=== PATIENT | female | born 1970 | race Caucasian/White ===

== ENCOUNTER 2016-08-26 13:20 | Inpatient (IN) | payer OTHER ==
[~2016-08-26] VITALS: Ht 152.4 cm; Wt 46.9 kg
[~2016-08-26 13:20] MED LIST: /DULO30CA; CYCL10TA3 PO; DIVA125C5 PO; MAPA500T PO; MULTTAB4 PO; OMEP40CA2 PO; SM I100T; TRAZ50TA; VICO5TA PO; WELL150T PO
[2016-08-26] MEDS ORDERED: IBUP600T26 PO (13:59)
[2016-08-26] MEDS ORDERED: clonazePAM 0.5 MG TAB PO ONE (14:15)
[2016-08-26] MEDS ORDERED: NICOTINE 21MG/24HR 1 EA TRANSDERMAL TD ONE (14:15)
[2016-08-26 14:30] LABS: MEAN CORPUSCULAR HEMOGLOBIN 30.5 pg (27.0-33.0); MEAN CORPUSCULAR VOLUME 92.6 fl (80.0-96.0); WHITE BLOOD COUNT 9.1 K/mm3 (4.0-10.0)
[2016-08-26 14:50] LABS: ALBUMIN 4.2 GM/DL (3.2-5.2); ALBUMIN/GLOBULIN RATIO 1.14 (1.00-1.93); ALKALINE PHOSPHATASE 80 U/L (45-117); ALT/SGPT 18 U/L (12-78); ANION GAP 7 MEQ/L (8-16); AST/SGOT 18 U/L (15-37); BILIRUBIN,DIRECT < 0.1 MG/DL (0.0-0.2); BILIRUBIN,TOTAL 0.3 MG/DL (0.2-1.0); BLOOD UREA NITROGEN 11 MG/DL (7-18); CALCIUM LEVEL 9.8 MG/DL (8.5-10.1); CARBON DIOXIDE LEVEL 28 MEQ/L (21-32); CHLORIDE LEVEL 103 MEQ/L (98-107); CREATININE FOR GFR 0.58 MG/DL (0.55-1.02); GLOMERULAR FILTRATION RATE > 60.0 (>58); GLUCOSE, FASTING 91 MG/DL (70-105); POTASSIUM SERUM 4.3 MEQ/L (3.5-5.1); SODIUM LEVEL 138 MEQ/L (136-145); TOTAL PROTEIN 7.9 GM/DL (6.4-8.2)
[2016-08-26 15:42] LABS: METHADONE URINE NEGATIVE (NEGATIVE)
[2016-08-26] MEDS ORDERED: ACET50TAOT PO (16:29)
[2016-08-26 18:34] VITALS: BP 94/53
[2016-08-26] MEDS ORDERED: MOM 30ML SUSPENSION UDC PO PRN (19:15)
[2016-08-26] MEDS ORDERED: MAALOX 30 ML SUSP *UDC PO PRN (19:15)
[2016-08-26] MEDS: ACETAMINOPHEN TAB 650MG DOSE (2X325MG) PO PRN (21:22)
[2016-08-26] MEDS: traZODone 50 MG TAB PO PRN (21:22)
[2016-08-27 06:15] VITALS: BP 101/48
[2016-08-27] MEDS: ACETAMINOPHEN TAB 650MG DOSE (2X325MG) PO PRN ×2 (08:39→16:45)
[2016-08-27] MEDS: NICOTINE 21MG/24HR 1 EA TRANSDERMAL TD SCH (08:39)
--- NOTE | 2016-08-27 11:10 | HPEPDOC ---
Medical History and Physical Date of Admission Aug 26, 2016 at 16:03 History and Physical PCP: None ATTENDING: Dr. Gurwinder Mc HPI: 46yoF admitted to [facility] for depressive disorder, being medically examined today. Patient states she has a history of scoliosis and chronic back pain however she takes Tylenol and it is typically controlled. She does not complain of pain radiating down her lower extremities. She does not complain of lower extremity pain. No weakness in lower extremities. No numbness or tingling in lower extremities. No loss of bowel or bladder control. No neck pain. No weakness, numbness, or tingling in upper extremities Denies any fevers, chills, weakness, fatigue, DOWELL, CP, SOB, cough, palpitations, abdominal pain, N/V/D or changes in bowel or bladder habits. PMHx: Anxiety Depression Bipolar disorder Scoliosis Chronic back pain Bacot use PSHX: Complete Hysterectomy Singleton 06/14 Oral surgery to remove teeth EGD 12/12 Reindl. SOCHX: Resides in: [facility] Marital Status: Kids: 2 Employment: Disabled Tobacco use: One pack per day ETOH: Denies Illicit Drugs: Denies IV Drug Use: Denies Tattoos done unprofessionally: 1 years ago FAMHX: Mother: , lung cancer Father: , lung cancer Siblings: 2 brothers Alive, well Children: Alive, learning disability Unexpected deaths due to medical reasons: None. ROS: As noted in HPI, otherwise 11pt ROS of systems reviewed and remarkable only for LMP NA Hysterectomy. PE: GEN: 46 yo F, appears stated age. Well-nourished, well developed. No acute distress. Alert and oriented x 3. Pleasant, interactive. HEENT: Normocephalic, atraumatic. Pupils are equal, round, and reactive to light. Extraocular movements are intact. No nystagmus appreciated. Sclera are nonicteric. Conjunctiva without injection. Nose midline. Nasal turbinates without bogginess. EACs both patent BL. TMs both visualized and hendrickson with good cone of light, no bulging or erythema. No facial asymmetry. Moist mucous membranes. Edentulous. Pharynx pink and moist, no cobblestoning. Neck supple, trachea midline. No lymphadenopathy or thyromegaly appreciated. CHEST: Regular rate and rhythm, +S1, +S2 LUNGS: Clear to auscultation bilaterally. No wheezes, rales, or rhonchi. Breathing appears symmetric and easy. Patient is speaking in full sentences. No accessory muscle use. ABD: Round, soft, non-tender, non-distended. +Bowel sounds throughout. No rebound or guarding. No costovertebral angle tenderness. EXT: Pulses 2+ bilaterally dorsalis pedis and radial. No lower extremity edema appreciated. SKIN: Mora, dry, warm. Capillary refill <2sec. No rashes. NEURO: Alert and oriented x 3. Cranial nerves III-XII are intact. No focal deficits appreciated. EK05/08/16 SINUS RHYTHM NO PRIOR FOR COMPARISON. A&P: 46yoF admitted to [facility] for depressive disorder 1. Psych. Plan per Psychiatry. EKG on file. 2. Nicotine dependence. Patch available. 3. History of scoliosis/low back pain. Continue Tylenol as needed. 4. Follow up. No Primary Care Provider. Will attempt to establish PCP on discharge. 5. History of tattoo done unprofessionally. Patient states she was screened in the past for HIV/hepatitis. Patient reports this was negative. She declines rescreening at this time. 6. Sarah RN present throughout exam. Vital Signs Vital Signs Label Value Date Time Patient Temperature 97.6 degrees F 08/27/16 0615 Temperature Source Core 08/27/16 0615 Pulse 79 08/27/16 0615 Respiratory Rate 16 bpm 08/27/16 0615 Blood Pressure Assessment 101/48 (65) 08/27/16 0615 Bedside Pulse Oximetry 96 % 08/26/16 1834 Item Value Date Time Oxygen Delivery Method Room Air 08/26/16 1834 Laboratory Data Labs 24H Laboratory Tests 2 08/26/16 13:53: Acetaminophen Level < 2.0L, Aspartate Amino Transf (AST/SGOT) 18, Alanine Aminotransferase (ALT/SGPT) 18, Alkaline Phosphatase 80, Total Bilirubin 0.3, Direct Bilirubin < 0.1, Albumin 4.2, Albumin/Globulin Ratio 1.14, Anion Gap 7L, Calcium Level 9.8, Ethyl Alcohol Level < 0.003, Glomerular Filtration Rate > 60.0, Salicylates Level 4.1L, Thyroid Stimulating Hormone (TSH) 1.340, Total Protein 7.9 08/26/16 15:03: Urine Amphetamines Screen NEGATIVE, Urine Benzodiazepines Screen NEGATIVE, Urine Opiates Screen NEGATIVE, Urine Barbiturates Screen NEGATIVE, Urine Cannabinoids Screen NEGATIVE, Urine Cocaine Metabolite Screen NEGATIVE, Urine Methadone Screen NEGATIVE, Urine Phencyclidine Screen NEGATIVE CBC/BMP Laboratory Tests 08/26/16 13:53 Red Blood Count 4.70, Mean Corpuscular Volume 92.6, Mean Corpuscular Hemoglobin 30.5, Mean Corpuscular Hemoglobin Concent 33.0, Red Cell Distribution Width 12.0 Home Medications Scheduled PRN Acetaminophen (Acetaminophen) 500 Mg Tab 500 MG PO Q4H PRN PRN PAIN Ibuprofen (Ibuprofen) 600 Mg Tab 600 MG PO Q6H PRN PRN PAIN Allergies Coded Allergies: Bee Venom (Verified Allergy, Unknown, 08/26/16) Valeria German Aug 27, 2016 11:10
[2016-08-27 18:00] VITALS: BP 106/63
[2016-08-27] MEDS: traZODone 50 MG TAB PO PRN (21:27)
--- NOTE | 2016-08-27 21:52 | MHHPE ---
DATE OF ADMISSION: 08/26/2016 DATE OF SERVICE: 08/27/2016 CHIEF COMPLAINT: "I have depression and anxiety." HISTORY OF PRESENT ILLNESS: The patient is a 46-year-old woman with reported history of occasional depression and anxiety, brought to the emergency department by police following a pickup order generated by her roommate, who happens to be her son's girlfriend. Reportedly, she began to feel depressed following the arrest of her son, about a week prior to the current emergency room visit. Her roommate called police after patient expressed suicidal ideation. The patient reports that she has had episodes of depression; however, such mood changes have mostly been in context of stressors, such as since the arrest of her son whom she lives with. In addition, she reports 'occasional anxiety" with nonspecific symptoms; however, she does not receive any mental health treatment, and her symptoms usually resolve spontaneously. No reported features suggestive of bipolar or psychotic disorder. PAST PSYCHIATRIC HISTORY: The patient reports two previous psychiatric encounters, the first being at age 19 due to attempted suicide with a gun following the of her father. Details are unclear, but she says she was briefly hospitalized then at [facility]. Second mental health encounter was about 8 years prior, when she was seen at [facility] Emergency Room for attempted overdose but was not admitted as per the patient. No reported outpatient psychiatric treatment. SUBSTANCE ABUSE HISTORY: She reports previous use of illicit drugs and alcohol but has not used any in 22 years. She smokes a pack of cigarettes a day and is educated on smoking cessation. MEDICAL HISTORY: Chronic back pain and scoliosis. ALLERGIES: She is allergic to bee venom. FAMILY AND SOCIAL HISTORY: She says that she is but has been from her in past 7 years. She has two children, 15 and 22-year-old males. The former lives with his uncle; however, she lives with her 22-year-old son and his girlfriend. The patient says that she completed 12th grade IEP. Worked once with [employer] but currently is unemployed, although receives supplemental security income (SSI) for her medical conditions. REVIEW OF SYSTEMS: None pertinent. Please refer to medical PA's physical assessment report. MENTAL STATUS EXAMINATION: The patient is of small build and looks older than her stated age. She is fairly groomed and relates conversationally. Her speech is of normal volume, rate, and rhythm. Thought process is coherent and goal directed. No evidence of delusions or hallucinations, and she denies active suicidal or homicidal thoughts, plan, or intent. Her mood is depressed, but she reports slight improvement since being on the unit. Affect is appropriate. She is alert and oriented to time, place, and person. Insight is fair and judgment not impaired. Impulse control seems adequate. DIAGNOSIS: Adjustment disorder with depressed mood. PROBLEM LIST: 1. Depressed mood. 2. Potential suicide risk. 3. Ineffective coping. PLAN: 1. Admission and provision of safe therapeutic setting. 2. No pharmacological intervention currently required; however, she will be reassessed ongoing, and any emergent symptom addressed as clinically indicated. 3. Therapeutic programming, including groups and activities, to help promote coping skills and mitigate risk for self-harm. 4. Discharge planning will commence immediately. ESTIMATED LENGTH OF STAY: 3-[address] [facility]
[2016-08-28 06:21] VITALS: BP 97/56
[2016-08-28] MEDS: NICOTINE 21MG/24HR 1 EA TRANSDERMAL TD SCH (08:58)
[2016-08-28] MEDS: ACETAMINOPHEN TAB 650MG DOSE (2X325MG) PO PRN ×2 (08:58→21:00)
--- NOTE | 2016-08-28 16:18 | IPN ---
DATE: 08/28/2016 SUBJECTIVE: The patient is a 46-year-old woman who was admitted two days prior due to expressing thoughts of suicide and was noted to be depressed following her son's arrest and incarceration. On admission, she was diagnosed with adjustment disorder with depressed mood. She was not started on any medication. Today, she reports that she has been doing fine and feeling less depressed. She reports that she slept well through the night. She also says that she has been interacting with others and following instructions and does not any longer feel like harming herself. She reports her mood as "getting better." She currently has been attending her groups and activities. OBSERVATION: She is well groomed, appropriately dressed. She relates well and is calm and cooperative. Her mood has shown some improvement, and she denies suicidal thoughts, plans or intent, as well as homicidal ideation. Her vital signs are stable. ASSESSMENT: Ms. Osborn, on psychotropic medication, has steadily improved and currently does not appear to be at risk of danger to self or to others. PLAN: She will be reevaluated in the next 24 hours and if stable, will be discharged with appropriate followup.
[2016-08-28 18:00] VITALS: BP 90/48
[2016-08-28] MEDS: traZODone 50 MG TAB PO PRN (21:04)
[2016-08-29] MEDS: ACETAMINOPHEN TAB 650MG DOSE (2X325MG) PO PRN (06:18)
[2016-08-29 06:20] VITALS: BP 98/49
[2016-08-29] MEDS: NICOTINE 21MG/24HR 1 EA TRANSDERMAL TD SCH (09:00)
[2016-08-29] MEDS ORDERED: NICO21PAT TD (09:21)
--- NOTE | 2016-08-29 15:38 | MHDS ---
DATE OF ADMISSION: 08/26/2016 DATE OF DISCHARGE: 08/29/2016 HISTORY: The patient is a 46-year-old woman with reported history of occasional depression and anxiety, brought to the emergency department by police following a pharmacy picking tech order generated by her room mate, who happens to be her son's girlfriend. Reportedly, she began to feel depressed following the arrest of her son about a week prior to the current emergency room visit. Her room mate called police after patient expressed suicidal ideation. The patient reports that she has had episodes of depression; however, such mood changes have mostly been in context of stressors such as the recent arrest of her son whom she lives with. In addition , she reports occasional anxiety with nonspecific symptoms. She does not receive any mental health treatment, but her symptoms usually resolve spontaneously. No report of symptoms suggestive of bipolar or psychotic disorder. PAST PSYCHIATRIC HISTORY: Patient reports two previous psychiatric encounters, the first being at age 19, due to attempted suicide with a gun following the of her father. The details are unclear; however, she says she was briefly hospitalized then at [facility]. Second mental health encounter was about 8 years prior when she was seen at [facility] emergency room, for attempted overdose, but was not admitted. No reported outpatient psychiatric treatment. SUBSTANCE ABUSE HISTORY: She reports previous use of illicit drugs and alcohol but has not indulged in 22 years. She smokes a pack of cigarettes a day and is educated on smoking sensation. MEDICAL HISTORY: Notable for chronic back pain and scoliosis. ALLERGIES: She is allergic to bee venom. FAMILY AND SOCIAL HISTORY: She says that she is but has been from her in past 7 years. She has two children; 15 and 22-year-old males, the former lives with his uncle, however she lives with her 22-year-old son and his girlfriend. Patient says that she completed 12th grade education ( IEP). Once worked at the [employer] but is currently unemployed, although receives supplemental security income (SSI) for her medical conditions. REVIEW OF SYSTEMS: Not pertinent. HOSPITAL COURSE: On admission, patient was noted to be of small build, and looked older than stated age. She was fairly groomed and related conversationally. Her speech was of normal volume, rate and rhythm. Thought process was coherent and goal-directed. No evidence of delusions or hallucinations and she denied active suicidal or homicidal thoughts, plans or intent. Her mood was depressed but she reported slight improvement while being on the unit. She was alert and oriented to time, place and person. Insight was fair and judgment not impaired. Impulse control was noted to be adequate. Admitting diagnosis was Adjustment Disorder with Depressed Mood. In terms of treatment, she was provided with therapeutic programming including group and individual as well as activity therapies. No medication was prescribed she had no indication for such an intervention. She showed improvement over the course of her stay, posing no management difficulties. She interacted with others, and no notable mood symptoms or anxiety were subsequently observed. No psychotic features were evident throughout her stay and she denied further thoughts suicide. MENTAL STATUS EXAMINATION ON DISCHARGE: She is noted to be alert, groomed, appropriately dressed, and relates conversationally. Speech is fluent, and no thought disorder evident. She denies hallucination and does not appear to be responding to internal stimuli. Her mood is not depressed or elated and she denies suicidal or homicidal ideation. DISCHARGE DIAGNOSIS: Adjustment disorder with depressed mood. DISCHARGE MEDICATION: None. DISPOSITION: Patient is discharged home, with instruction to follow up with behavioral health services. Plan discussed and she demonstrates understanding, and is in agreement. DONITA
== END 2016-08-29 10:00 | disposition home or self-care (01) | DRG 754 ==
LOC: M ED 14:50 → M ED INP 16:03 → M PSY 18:08
PROVIDERS: ADMIT Psychiatry & Neurology Child & Adolescent Psychiatry; ATTEND Psychiatry & Neurology Psychiatry
DX: F43.21 Adjustment disorder with depressed mood (principal); F17.210 Nicotine dependence, cigarettes, uncomplicated; M54.5 Low back pain

== ENCOUNTER → 2016-09-24 | Outpatient (REF) | payer OTHER ==
[~2016-09-24] MED LIST changes: +ACET50TAOT PO; +IBUP600T26 PO; +NICO21PAT TD
[2016-09-24 18:52] LABS: BASO # 0.1 K/mm3 (0.0-0.2); BASO % 1.3 % (0.0-1.0); EOS # 0.4 K/mm3 (0.0-0.50); EOS % 4.8 % (0.0-3.0); LARGE UNSTAINED CELL # 0.1 K/mm3 (0.0-0.4); LARGE UNSTAINED CELL % 1.6 % (0.0-4.0); LYMPH % 38.9 % (24.0-44.0); MEAN CORPUSCULAR HEMOGLOBIN 30.4 pg (27.0-33.0); MEAN CORPUSCULAR HGB CONC 32.9 g/dl (32.0-36.5); MEAN CORPUSCULAR VOLUME 92.3 fl (80.0-96.0); MONO # 0.4 K/mm3 (0.0-0.8); NEUTROPHILS # 3.5 K/mm3 (1.8-7.7); NEUTROPHILS % 47.4 % (36.0-66.0); PLATELET COUNT, AUTOMATED 318 k/mm3 (150-450); RED CELL DISTRIBUTION WIDTH 12.1 % (11.5-14.5); WHITE BLOOD COUNT 7.4 K/mm3 (4.0-10.0)
[2016-09-24 20:12] LABS: ALBUMIN 4.1 GM/DL (3.2-5.2); ALBUMIN/GLOBULIN RATIO 1.14 (1.00-1.93); ALKALINE PHOSPHATASE 73 U/L (45-117); ALT/SGPT 16 U/L (12-78); ANION GAP 10 MEQ/L (8-16); AST/SGOT 16 U/L (15-37); BILIRUBIN,TOTAL 0.3 MG/DL (0.2-1.0); BLOOD UREA NITROGEN 14 MG/DL (7-18); CALCIUM LEVEL 8.8 MG/DL (8.5-10.1); CARBON DIOXIDE LEVEL 24 MEQ/L (21-32); CHLORIDE LEVEL 103 MEQ/L (98-107); CHOLESTEROL LEVEL 211 MG/DL (<200); CREATININE FOR GFR 0.59 MG/DL (0.55-1.02); FREE T4 1.05 NG/DL (0.76-1.46); GLOMERULAR FILTRATION RATE > 60.0 (>58); GLUCOSE, FASTING 89 MG/DL (70-105); POTASSIUM SERUM 4.8 MEQ/L (3.5-5.1); SODIUM LEVEL 137 MEQ/L (136-145); TOTAL PROTEIN 7.7 GM/DL (6.4-8.2); TRIGLYCERIDES LEVEL 159 MG/DL (<150)
== END ==
LOC: M LAB REF 17:36
PROVIDERS: ATTEND Nurse Practitioner Family
DX: Z13.220 Encounter for screening for lipoid disorders (principal)

== ENCOUNTER 2016-10-23 10:12 | Emergency (ER) | payer MEDICAID, OTHER ==
[~2016-10-23] VITALS: Ht 152.4 cm; Wt 45.4 kg
[2016-10-23] MEDS ORDERED: SERT-155 (10:24)
[2016-10-23] MEDS ORDERED: TRAZ100T4 (10:24)
[2016-10-23] MEDS ORDERED: FAMO40TA3 (10:24)
--- NOTE | 2016-10-23 11:48 | REP ---
Clinical: Weight loss and high risk factors . Comparison: 05/08/2016 . Technique: PA and lateral. Findings: The mediastinum and cardiac silhouette are normal. The lung mir demonstrate chronic changes suggesting COPD/emphysematous disease without acute consolidation, effusion, or pneumothorax. The skeletal structures are intact and normal. Impression: Chronic COPD/emphysematous disease. No acute cardiopulmonary process. Signed by Robinson Rajan MD 10/23/2016 11:39 A
[2016-10-23 12:06] VITALS: BP 92/58
== END 2016-10-23 12:19 | disposition home or self-care (01) ==
LOC: M ED 11:02
DX: R63.4 Abnormal weight loss (principal)

== ENCOUNTER 2017-01-22 10:12 | Outpatient (CLI) | payer OTHER ==
[~2017-01-22] VITALS: Ht 152.4 cm; Wt 47.6 kg
[~2017-01-22 10:12] MED LIST changes: +ACET50TA PO; +DIVA250T PO; +FAMO40TA3; +IBUP-1022 PO; -IBUP600T26 PO; +OMEP20CA3 PO; +SERT-138 PO; +SERT-155; +TRAZ-136
[2017-01-22] MEDS ORDERED: NS 1,000 ML IV ONE (10:30)
[2017-01-22] MEDS ORDERED: PROPOFOL 500 MG/50 ML VIAL As Ordered ONE (10:51)
--- NOTE | 2017-01-22 12:00 | ROOR ---
Patient Name: Lynnette Osborn Procedure Date: 01/22/2017 11:49 AM Date of : 1970 Age: 46 Room: [facility] Gender: Female Note Status: Finalized Procedure: Upper GI endoscopy Indications: Dysphagia, Heartburn Providers: Gurwinder SHEPARD MD Referring MD: Justyn AGUIRRE MD Requesting Provider: Medicines: Monitored Anesthesia Care Complications: No immediate complications. Procedure: Pre-Anesthesia Assessment: - The heart rate, respiratory rate, oxygen saturations, blood pressure, adequacy of pulmonary ventilation, and response to care were monitored throughout the procedure. The Endoscope was introduced through the mouth, and advanced to the second part of duodenum. The upper GI endoscopy was accomplished without difficulty. The patient tolerated the procedure well. Findings: The examined esophagus was normal. No endoscopic abnormality was evident in the esophagus to explain the patient's complaint of dysphagia. It was decided, however, to proceed with dilation of the entire esophagus. The scope was withdrawn. Dilation was performed with a Garcia dilator with no resistance at 54 Fr. The dilation site was examined following endoscope reinsertion and showed no change. The entire examined stomach was normal. The examined duodenum was normal. Impression: - Normal esophagus. No endoscopic esophageal abnormality to explain patient's dysphagia. Esophagus dilated with 54 F Garcia. - Normal stomach. - Normal examined duodenum. - No specimens collected. Recommendation: - Use Prilosec (omeprazole) 20 mg PO BID indefinitely. Gurwinder Shepard MD Gurwinder SHEPARD MD 01/22/2017 12:00:21 PM This report has been signed electronically. Number of Addenda: 0 Note Initiated On: 01/22/2017 11:49 AM Estimated Blood Loss: Estimated blood loss: none.
[2017-01-22] MEDS ORDERED: LIDOCAINE 2% INJ 100 MG/5 ML SDV (FOR ANES.) As Ordered ONE (12:02)
--- NOTE | 2017-01-22 12:17 | ROOR ---
Patient Name: Lynnette Osborn Procedure Date: 01/22/2017 11:53 AM Date of : 1970 Age: 46 Room: [facility] Gender: Female Note Status: Finalized Procedure: Colonoscopy Indications: Weight loss Providers: Gurwinder SHEPARD MD Referring MD: Justyn AGUIRRE MD Requesting Provider: Medicines: Monitored Anesthesia Care Complications: No immediate complications. Procedure: Pre-Anesthesia Assessment: - The heart rate, respiratory rate, oxygen saturations, blood pressure, adequacy of pulmonary ventilation, and response to care were monitored throughout the procedure. The Colonoscope was introduced through the anus and advanced to 5 cm into the ileum. The colonoscopy was performed without difficulty. The patient tolerated the procedure well. The quality of the bowel preparation was good. Findings: The perianal and digital rectal examinations were normal. Internal hemorrhoids were found during retroflexion. The hemorrhoids were moderate. The entire examined colon appeared normal on direct and retroflexion views. The terminal ileum appeared normal. Impression: - Internal hemorrhoids. - The entire colon is normal on direct and retroflexion views. - The examined portion of the ileum was normal. - No specimens collected. Recommendation: - Return to referring physician as previously scheduled. - Continue present medications. Gurwinder Shepard MD Gurwinder SHEPARD MD 01/22/2017 12:16:53 PM This report has been signed electronically. Number of Addenda: 0 Note Initiated On: 01/22/2017 11:53 AM Estimated Blood Loss: Estimated blood loss: none.
[2017-01-22 12:43] VITALS: BP 114/55
== END 2017-01-22 12:43 | disposition home or self-care (01) ==
LOC: M OPP 10:12
PROVIDERS: ATTEND Internal Medicine Gastroenterology
DX: R63.4 Abnormal weight loss (principal); K64.8 Other hemorrhoids; K21.9 Gastro-esophageal reflux disease without esophagitis; K58.9 Irritable bowel syndrome, unspecified; M19.90 Unspecified osteoarthritis, unspecified site; M41.9 Scoliosis, unspecified; F41.9 Anxiety disorder, unspecified; F33.9 Major depressive disorder, recurrent, unspecified; R06.83 Snoring; F17.210 Nicotine dependence, cigarettes, uncomplicated; Z79.899 Other long term (current) drug therapy; Z91.030 Bee allergy status; Z88.8 Allergy status to other drugs, medicaments and biological substances

== ENCOUNTER → 2017-06-04 | Outpatient (CLI) | payer OTHER | LOC: M RAD 08:42 | DX: R10.11 Right upper quadrant pain (principal) | CPT/HCPCS: J2805 ==

== ENCOUNTER 2017-08-28 08:55 | Emergency (ER) | payer OTHER | END 2017-08-28 10:01 | disposition home or self-care (01) | LOC: M ED 08:55 | DX: M41.9 Scoliosis, unspecified (principal); K21.9 Gastro-esophageal reflux disease without esophagitis; Z79.899 Other long term (current) drug therapy; Z91.030 Bee allergy status; F17.210 Nicotine dependence, cigarettes, uncomplicated | CPT/HCPCS: 99282 ==

== ENCOUNTER 2019-02-22 13:30 | Inpatient (IN) | payer MEDICAID, OTHER ==
[~2019-02-22] VITALS: Ht 152.4 cm; Wt 41.4 kg
[~2019-02-22 13:30] MED LIST changes: -/DULO30CA; +ACET500T15 PO; -ACET50TA PO; -ACET50TAOT PO; +AMOX500C PO; +BUPR150T3 PO; +CYCL7.5T32 PO; +CYMB1CAP5; +DIPH50CA29 PO; -DIVA250T PO; +DIVA250T67 PO; +MAPA500T2 PO; +NAPR-837 PO; -OMEP20CA3 PO; +OMEP20CA4 PO; -TRAZ-136; +TRAZ-163
[2019-02-22] MEDS ORDERED: TRAZ-189 PO (13:42)
[2019-02-22] MEDS ORDERED: IBUP80TA PO (13:42)
[2019-02-22] MEDS ORDERED: OMEP-218 PO (13:42)
[2019-02-22 14:20] LABS: HEMOGLOBIN 13.9 g/dl (12.0-15.5); MEAN CORPUSCULAR HEMOGLOBIN 30.6 pg (27.0-33.0); MEAN CORPUSCULAR HGB CONC 33.9 g/dl (32.0-36.5); MEAN CORPUSCULAR VOLUME 90.3 fl (80.0-96.0); PLATELET COUNT, AUTOMATED 279 10^3/uL (150-450); RED BLOOD COUNT 4.54 10^6/uL (4.00-5.40); WHITE BLOOD COUNT 8.6 10^3/uL (4.0-10.0)
[2019-02-22 14:45] LABS: ALT/SGPT 11 U/L (12-78); BILIRUBIN,TOTAL 0.3 MG/DL (0.2-1.0); BLOOD UREA NITROGEN 13 MG/DL (7-18); CALCIUM LEVEL 9.1 MG/DL (8.5-10.1); CARBON DIOXIDE LEVEL 23 MEQ/L (21-32); CHLORIDE LEVEL 108 MEQ/L (98-107); CREATININE FOR GFR 0.64 MG/DL (0.55-1.30); GLOMERULAR FILTRATION RATE > 60.0 (>58); GLUCOSE, FASTING 112 MG/DL (70-100); POTASSIUM SERUM 3.9 MEQ/L (3.5-5.1); SODIUM LEVEL 138 MEQ/L (136-145)
[2019-02-22 14:46] LABS: ACETAMINOPHEN LEVEL < 2.0 UG/ML (10.0-30.0); BILIRUBIN,DIRECT 0.1 MG/DL (0.0-0.2); ETHYL ALCOHOL (ETHANOL) < 0.003 % (0.000-0.010); SALICYLATE LEVEL 5.6 MG/DL (5.0-30.0); THYROID STIMULATING HORMONE 0.865 uIU/ML (0.358-3.740); TOTAL PROTEIN 7.2 GM/DL (6.4-8.2)
[2019-02-22 15:17] LABS: AMPHETAMINES LEVEL URINE NEGATIVE (NEGATIVE); BARBITURATES URINE NEGATIVE (NEGATIVE); BENZODIAZEPINES URINE NEGATIVE (NEGATIVE); CANNABINOIDS URINE NEGATIVE (NEGATIVE); COCAINE METABOLITE URINE NEGATIVE (NEGATIVE); METHADONE URINE NEGATIVE (NEGATIVE); OPIATES URINE NEGATIVE (NEGATIVE); PHENCYCLIDINE URINE NEGATIVE (NEGATIVE)
[2019-02-22] MEDS ORDERED: MOM 30ML SUSPENSION UDC PO PRN (18:30)
[2019-02-22] MEDS ORDERED: MAALOX 30 ML SUSP *UDC PO PRN (18:30)
[2019-02-22] MEDS ORDERED: OLANZapine ORAL DISINTEGRATING TAB 5MG PO PRN (18:30)
[2019-02-22] MEDS ORDERED: NICOTINE 21MG/24HR 1 EA TRANSDERMAL TD ONE (20:15)
[2019-02-22 21:00] VITALS: BP 119/59
[2019-02-22] MEDS: IBUPROFEN 400 MG TAB PO PRN (21:24)
[2019-02-22] MEDS: traZODone 50 MG TAB PO PRN (21:24)
[2019-02-23 06:00] VITALS: BP 111/55
[2019-02-23] MEDS: OMEPRAZOLE 20 MG CAP PO SCH (09:00)
[2019-02-23] MEDS: IBUPROFEN 400 MG TAB PO PRN ×2 (09:11→21:01)
--- NOTE | 2019-02-23 10:01 | MHHPEPDOC ---
[facility] History & Physical History and Physical Date of Service: 02/23/2019 Chief Complaint "I just want help." History of Present Illness The patient, a 48-year-old woman, with a history of depression, presents to [facility] complaining of consistent depression, low mood, difficulty sleeping, excessive guilt, loss of interest and other symptoms that she has found concerning. She states that she has no suicidal ideation, but that she does ultimately want help. She describes that her depression has been getting worse. She previously was on sertraline, but has not been able to follow up with outpatient to continue on the prescription and her depression has gone worse in that setting. She describes that she was brought in by her family membe r as she had asked to come in due to the severity of the symptoms. Review Of Systems Depression: As above. Anxiety: The patient denies any excessive worry associated with physical symptoms. They deny any experience of discreet panic in the past. Veronika: The patient denies any episodes of euphoria/dysphoria associated with decreased need for sleep, hedonism, talkatively or impulsivity lasting longer than 5 days. Psychotic: The patient denies any experiences of auditory or visual hallucinations. They deny any episodes of paranoia or delusional thinking in the past Trauma: The patient denies any traumatic events associated with nightmares or intrusive thoughts. Borderline: The patient screens negative for borderline personality at this junction. Past Psychiatric History The patient has a reported history of depression, previously admitted in July 2016 for suicidal thoughts. Reports that she was admitted to inpatient mental health at 19 years old for a suicide attempt via firearm. Reports being previously tried on sertraline, but no other trials. Reports no current outpatient follow-up. Allergies Please see below. Family Psychiatric History The patient denies any mental health history, addictions or suicides in the family. Social History The patient currently lives in the local area. She is from her , has two children, 18 and 24 at this time. She reports they were taken away at age 8 months, raised by their aunt and uncle. Per the patient, is currently in court to settle a dispute about child support during that time. Her 24-year-old currently lives with her. She has no history of violent crime. Subsists on disability. Graduated high school with an individualized education plan. Substance Abuse History The patient reports smoking a pack a day of cigarettes, but denies excessive alcohol use, cannabis, opioids or other illicit substances. Medical History Patient has no significant past medical history. Mental Status Examination General: Well dressed with good hygiene Speech: Spontaneous and fluid Thought processes: Linear and logical MSK: Smooth and coordinated gait, no signs of tremors or involuntary orofacial movements Thought content: Future orientated Abstract reasoning, and computation: Intact Description of associations: Intact Description of abnormal or psychotic thoughts: Denies any suicidal or homicidal ideation. Denies any auditory or visual hallucinations. Does not appear to be responding to internal stimuli. Does not appear to be endorsing any bizarre or paranoid ideation. Judgment: fair Insight: fair Orientation: Alert and orientated 3 Cognition: Grossly normal Recent and remote memory: Intact Attention span and concentration: Intact Fund of knowledge: Adequate Mood: "okay" Affect: dysthymic with constricted range Diagnoses Major depressive disorder, moderate, recurrent. Tobacco use disorder, severe. Assessment and Plan Major depressive disorder: Restart sertraline 25 mg daily. Discussed risks, benefits and potential side effects of treatment. Tobacco use disorder: Nicotine replacement. Declines Chantix, reports negative results in the past. Disposition Patient will need admission likely lasting longer than two midnights in order to treat her depression and assure a safe discharge plan. Problem List 1. Depression. 2. Non-adherence. 3. Ineffective coping. Initial Treatment Plan 1. Patient was admitted on a 9.39 legal status. 2. Complete history was obtained. 3. With patients permission, family will be contacted and database will be expanded. 4. Patients medication regimen will be reviewed and changed accordingly. 5. Patient will be provided with protected environment. 6. Patient will be treated with individual, group, and milieu therapies. 7. Patient will receive supportive psych-education. 8. Discharge planning will commence immediately. 9. Outpatient follow-up treatment will be strongly recommended. 10. The initial treatment plan will focus initially on converting to voluntary as patient does not meet involuntary criteria. Estimated Length Of Stay 3 days. Time Spent 40 minutes. Vital Signs Vital Signs Date Time Temp Pulse Resp B/P (MAP) Pulse Ox O2 Delivery O2 Flow Rate FiO2 02/23/19 06:00 98.7 80 12 111/55 (73) 02/22/19 17:54 96 Room Air Laboratory Data 24H Labs Laboratory Tests 2 02/22/19 14:06: Nucleated Red Blood Cells % (auto) 0.0, Anion Gap 7L, Glomerular Filtration Rate > 60.0, Calcium Level 9.1, Aspartate Amino Transf (AST/SGOT) 12, Alanine Aminotransferase (ALT/SGPT) 11L, Alkaline Phosphatase 63, Total Bilirubin 0.3, Direct Bilirubin 0.1, Total Protein 7.2, Albumin 4.0, Albumin/Globulin Ratio 1.25, Thyroid Stimulating Hormone (TSH) 0.865, Salicylates Level 5.6, Urine Amphetamines Screen NEGATIVE, Urine Benzodiazepines Screen NEGATIVE, Urine Opiates Screen NEGATIVE, Urine Methadone Screen NEGATIVE, Acetaminophen Level < 2.0L, Urine Barbiturates Screen NEGATIVE, Urine Phencyclidine Screen NEGATIVE, Urine Cocaine Metabolite Screen NEGATIVE, Urine Cannabinoids Screen NEGATIVE, Ethyl Alcohol Level < 0.003 CBC/BMP Laboratory Tests 02/22/19 14:06 Red Blood Count 4.54, Mean Corpuscular Volume 90.3, Mean Corpuscular Hemoglobin 30.6, Mean Corpuscular Hemoglobin Concent 33.9, Red Cell Distribution Width 12.7 Medications Scheduled Nicotine (Nicotrol) 10 Mg Cartridge, 1 PUFF INH ASDIRECTED for tobacoo Sertraline HCl (Sertraline HCl) 25 Mg Tablet, 25 MG PO DAILY for mood Trazodone HCl (Trazodone HCl) 100 Mg Tablet, 150 MG PO QHS, (Reported) Scheduled PRN Ibuprofen (Ibuprofen) 800 Mg Tablet, 800 MG PO Q8H PRN for PAIN, (Reported) Omeprazole (Omeprazole) 20 Mg Capsule.dr, 20 MG PO BID PRN for HEARTBURN, (Reported) Allergies Coded Allergies: bee venom protein (honey bee) (Verified Allergy, Unknown, 02/22/19) EDDIE ALANIS DO Feb 23, 2019 10:01
[2019-02-23] MEDS ORDERED: SERTRALINE HCL 25 MG TABLET PO ONE (13:30)
--- NOTE | 2019-02-23 13:41 | HPEPDOC ---
General Date of Admission Feb 22, 2019 at 18:26 Date of Service: Feb 23, 2019 Chief Complaint The patient is a 48-year-old female Who presented to the emergency room with complaints of depression History of Present Illness Patient is a 48-year-old female with past medical history of migraine headaches, learning disability, anxiety/depression, and GERD who presented to the emergency room with complains of depression. Patient was admitted to the inpatient mental health unit under the care of psychiatry. . Hospitalist service was consulted for medical screening evaluation. Currently patient reports that she does experience some palpitations. She denies chest pain, shortness of breath or any recent illnesses. She does report a dry cough without any sputum production. Patient denies abdominal pain, nausea, vomiting or any persistent diarrhea or constipation. Patient denies any urinary discomfort. She denies any fevers or chills over the last 2 weeks. Patient reports that shes experience mild weight loss of approximately 9 pounds over 4 months. She reports that her appetite is poor. Home Medications Scheduled Trazodone HCl (Trazodone HCl) 100 Mg Tablet, 150 MG PO QHS, (Reported) Scheduled PRN Ibuprofen (Ibuprofen) 800 Mg Tablet, 800 MG PO Q8H PRN for PAIN, (Reported) Omeprazole (Omeprazole) 20 Mg Capsule.dr, 20 MG PO BID PRN for HEARTBURN, (Reported) Allergies Coded Allergies: bee venom protein (honey bee) (Verified Allergy, Unknown, 02/22/19) Past Medical History Medical History Migraine headaches, learning disability, anxiety/depression, and GERD Surgical History Hysterectomy Dilation and curettage Multiple tooth extractions Colonoscopy and EGD Family History - Mother and father both with a history of lung cancer and brain cancer Social History - Denies the use of alcohol or illicit drugs; patient is an active smoker since she was 15 years old - Denies recent travel or sick contacts - Lives with son and his - Occupation; currently on disability Review of Systems Other systems 10 point review of systems complete, all negative otherwise stated in HPI Vital Signs - Vitals: BP 111/55, HR 80, RR 12, Sat 96%RA, Temp 98.7F - General: Lying in bed, No acute distress, Speaking in full sentences, AAOx3 - HEENT: NC, AT, PERRLA - CVS: RRR, +S1S2 - Lungs: Fair air entry bilaterally, No appreciable wheezing / rales / rhonchi - Abdomen: Soft, Non-distended, Non-tender - Extremities: No lower extremity edema, No calf tenderness - Neuro: No focal motor or sensory deficit - Skin: No visible rashes Laboratory Data Labs 24H Laboratory Tests 2 02/22/19 14:06: Nucleated Red Blood Cells % (auto) 0.0, Anion Gap 7L, Glomerular Filtration Rate > 60.0, Calcium Level 9.1, Aspartate Amino Transf (AST/SGOT) 12, Alanine Aminotransferase (ALT/SGPT) 11L, Alkaline Phosphatase 63, Total Bilirubin 0.3, Direct Bilirubin 0.1, Total Protein 7.2, Albumin 4.0, Albumin/Globulin Ratio 1.25, Thyroid Stimulating Hormone (TSH) 0.865, Salicylates Level 5.6, Urine Amphetamines Screen NEGATIVE, Urine Benzodiazepines Screen NEGATIVE, Urine Opiates Screen NEGATIVE, Urine Methadone Screen NEGATIVE, Acetaminophen Level < 2.0L, Urine Barbiturates Screen NEGATIVE, Urine Phencyclidine Screen NEGATIVE, Urine Cocaine Metabolite Screen NEGATIVE, Urine Cannabinoids Screen NEGATIVE, Ethyl Alcohol Level < 0.003 CBC/BMP Laboratory Tests 02/22/19 14:06 Red Blood Count 4.54, Mean Corpuscular Volume 90.3, Mean Corpuscular Hemoglobin 30.6, Mean Corpuscular Hemoglobin Concent 33.9, Red Cell Distribution Width 12.7 Plan / VTE VTE Prophylaxis Ordered?: Yes Plan Plan Depression - This is currently being managed by psychiatry Migraine headaches - c/w Ibuprofen PRN Learning disability - Patient currently appears to be functional and reports that this learning disability, is very mild Nicotine dependence - Strongly advised smoking cessation - c/w Nicotine patch GERD - c/w Omeprazole DVT prophylaxis - c/w Early ambulation Software Asset Management Analyst was present for the duration of this history and physical examination Please reconsult as needed MONIQUE FORTE MD Feb 23, 2019 13:41
[2019-02-23] MEDS ORDERED: ONDANSETRON 4 MG ORAL DISINTEGRATING TAB (Q0162 PER 1MG) PO PRN (15:00)
[2019-02-23 15:31] VITALS: BP 101/47
[2019-02-23] MEDS: traZODone 50 MG TAB PO PRN (21:02)
[2019-02-24 06:28] VITALS: BP 96/49
--- NOTE | 2019-02-24 08:20 | MHIPNPDOC ---
[facility] Progress Note Progress Note Inpatient Progress Note Lynnette Osborn MRN: N/A Date of : N/A Date of Service: 02/24/2019 History of Present Illness The patient, a 48-year-old woman, with a history of depression, presents to [facility] complaining of consistent depression, low mood, difficulty sleeping, excessive guilt, loss of interest and other symptoms that she has found concerning. She states that she has no suicidal ideation, but that she does ultimately want help. She describes that her depression has been getting worse. She previously was on sertraline, but has not been able to follow up with outpatient to continue on the prescription and her depression has gone worse in that setting. She describes that she was brought in by her family member as she had asked to come in due to the severity of the symptoms. Interval History The patient was met with today. She reports that she's tolerating the sertraline well and that she's doing well on it with improved mood, energy, less fatigue, better motivation and less concentration and focus problems. She reports feeling very good and that the nicotine patch is helpful for her tobacco cravings. She reports she's feeling ready for discharge tomorrow. No behavioral problems overnight. Nursing staff noted her to be quite amenable. Review Of Systems General: Denies fever or weight changes Cardiovascular: Denies Chest pain or palpations GI: Denies Nausea, vomiting, or bowel changes Respiratory: Denies shortness of breath or cough Neuro: Denies dizziness, tremors Derm: Denies any rashes or pruritus : Denies any dysuria or hesitancy MSK: Denies any muscle tightness or stiffness HEENT: Denies any vision changes or headaches Heme/Lymph: denies any bruising or bleeding Endo: denies any cold/heat intolerance or water intake changes Psychotherapy None on this visit. Vital Signs Reviewed. Mental Status Examination General: Well dressed with good hygiene Speech: Spontaneous and fluid Thought processes: Linear and logical MSK: Smooth and coordinated gait, no signs of tremors or involuntary orofacial movements Thought content: Future orientated Abstract reasoning, and computation: Intact Description of associations: Intact Description of abnormal or psychotic thoughts: Denies any suicidal or homicidal ideation. Denies any auditory or visual hallucinations. Does not appear to be responding to internal stimuli. Does not appear to be endorsing any bizarre or paranoid ideation. Judgment: fair Insight: fair Orientation: Alert and orientated 3 Cognition: Grossly normal Recent and remote memory: Intact Attention span and concentration: Intact Fund of knowledge: Adequate Mood: "okay" Affect: Euthymic with a full range Diagnoses Major depressive disorder, moderate, recurrent. Tobacco use disorder, severe. Assessment and Plan Major depressive disorder: To continue sertraline 25 mg daily. Tobacco use disorder: Nicotine replacement. Declines Chantix, reports negative results in the past. Disposition Discharge tomorrow. Time Spent 20 minutes. Vital Signs Vital Signs Date Time Temp Pulse Resp B/P (MAP) Pulse Ox O2 Delivery O2 Flow Rate FiO2 02/24/19 06:28 98.0 77 18 96/49 (65) 02/22/19 17:54 96 Room Air Current Medications Current Medications Medications (Trade) Dose Ordered Sig/Isaac Route PRN Reason Start Time Stop Time Status Last Admin Dose Admin Al Hydrox/Mg Hydrox/Simethicone (Mylanta) 30 ml Q4HP PRN PO HEARTBURN/INDIGESTION 02/22/19 18:30 Home Med (Med Rec Complete!) ASDIRECTED XX 02/22/19 18:30 02/22/19 18:35 DC Ibuprofen (Advil) 800 mg TID PRN PO PAIN 02/22/19 18:30 02/23/19 21:01 Magnesium Hydroxide (Milk Of Magnesia) 30 ml DAILYPRN PRN PO CONSTIPATION 02/22/19 18:30 Olanzapine (ZyPREXA ZYDIS) 5 mg Q6HP PRN PO ANXIETY/AGITATION 02/22/19 18:30 Omeprazole (PriLOSEC) 20 mg DAILY PO 02/23/19 09:00 Ondansetron HCl (Zofran Odt) 2 mg Q6HP PRN PO NAUSEA 02/23/19 15:00 Sertraline HCl (Zoloft) 25 mg DAILY PO 02/24/19 09:00 Trazodone HCl (Desyrel) 100 mg QHSP PRN PO INSOMNIA 02/22/19 18:30 02/23/19 21:02 Allergies Coded Allergies: bee venom protein (honey bee) (Verified Allergy, Unknown, 02/22/19) EDDIE ALANIS DO Feb 24, 2019 08:20
[2019-02-24] MEDS: SERTRALINE HCL 25 MG TABLET PO SCH (08:36)
[2019-02-24] MEDS: IBUPROFEN 400 MG TAB PO PRN ×2 (08:36→20:47)
[2019-02-24] MEDS: OMEPRAZOLE 20 MG CAP PO SCH (08:36)
[2019-02-24] MEDS: NICOTINE 21MG/24HR 1 EA TRANSDERMAL TD SCH (08:59)
[2019-02-24] MEDS ORDERED: SERT25TA88 PO (09:37)
[2019-02-24] MEDS ORDERED: NICOINH INH (09:37)
[2019-02-24 18:45] VITALS: BP 91/52
[2019-02-24] MEDS: traZODone 50 MG TAB PO PRN (20:47)
[2019-02-25 06:04] VITALS: BP 97/55
[2019-02-25] MEDS: IBUPROFEN 400 MG TAB PO PRN (06:31)
[2019-02-25] MEDS: OMEPRAZOLE 20 MG CAP PO SCH (08:19)
[2019-02-25] MEDS: SERTRALINE HCL 25 MG TABLET PO SCH (08:19)
[2019-02-25] MEDS: NICOTINE 21MG/24HR 1 EA TRANSDERMAL TD SCH (09:34)
--- NOTE | 2019-02-25 16:46 | MHDSPDOC ---
[facility] Discharge Summary Discharge Summary DATE OF ADMISSION: Feb 22, 2019 at 18:26 DATE OF DISCHARGE: Feb 25, 2019 at 12:30 Date of Service: 02/25/2019 Diagnoses Major depressive disorder, moderate, recurrent, in full remission Tobacco use disorder, severe. History of Present Illness The patient, a 48-year-old woman, with a history of depression, presents to [facility] complaining of consistent depression, low mood, difficulty sleeping, excessive guilt, loss of interest and other symptoms that she has found concerning. She states that she has no suicidal ideation, but that she does ultimately want help. She describes that her depression has been getting worse. She previously was on sertraline, but has not been able to follow up with outpatient to continue on the prescription and her depression has gone worse in that setting. She describes that she was brought in by her family member as she had asked to come in due to the severity of the symptoms. Consultants Involved Hospitalist/PCP screening Treatment and Progress On The Unit The patient was admitted to the unit and was converted to a voluntary status as she was not expressing any suicidal or homicidal ideation. During her entire presentation did not meet involuntary criteria for extension of her admission. She was restarted on previously tried sertraline 25 mg daily with positive effects, improved mood and additionally started on a nicotine patch with positive effects. She did well and improved over her three-day admission. Subsequently on the day of discharge, she had requested to go, did not meet involuntary criteria. She had not been expressing any safety concerns since her presentation and had been attending to her needs, not demonstrate any signs or symptoms of major mental illness impairing her and declined further continuance of her voluntary admission and was discharged in good sherif. Discharge Assessment 48-year-old woman with depression and anxiety who made significant improvements in her mood and ability to attend her needs after restart of sertraline. Mental Status Examination General: Well dressed with good hygiene Speech: Spontaneous and fluid Thought processes: Linear and logical MSK: Smooth and coordinated gait, no signs of tremors or involuntary orofacial movements Thought content: Future orientated Abstract reasoning, and computation: Intact Description of associations: Intact Description of abnormal or psychotic thoughts: Denies any suicidal or homicidal ideation. Denies any auditory or visual hallucinations. Does not appear to be responding to internal stimuli. Does not appear to be endorsing any bizarre or paranoid ideation. Judgment: fair Insight: fair Orientation: Alert and orientated 3 Cognition: Grossly normal Recent and remote memory: Intact Attention span and concentration: Intact Fund of knowledge: Adequate Mood: "okay" Affect: Euthymic with a full range Follow Up The social work team worked during the predischarge meeting in order to evaluate for further issues of lethality address them fully before discharge. They worked on safety planning with the patient's family members in order to ensure that the patient will have a safe and effective discharge. Time Spent The amount of time spent in the coordination of care for this patient was approximately 20 minutes. Vital Signs/I&Os Vital Signs Date Time Temp Pulse Resp B/P (MAP) Pulse Ox O2 Delivery O2 Flow Rate FiO2 02/25/19 06:04 97.2 82 18 97/55 (69) 02/22/19 17:54 96 Room Air Medications Scheduled Nicotine (Nicotrol) 10 Mg Cartridge, 1 PUFF INH ASDIRECTED for tobacoo for 30 Days, #1 Sertraline HCl (Sertraline HCl) 25 Mg Tablet, 25 MG PO DAILY for mood for 7 Days, #7 Trazodone HCl (Trazodone HCl) 100 Mg Tablet, 150 MG PO QHS, (Reported) Scheduled PRN Ibuprofen (Ibuprofen) 800 Mg Tablet, 800 MG PO Q8H PRN for PAIN, (Reported) Omeprazole (Omeprazole) 20 Mg Capsule.dr, 20 MG PO BID PRN for HEARTBURN, (Reported) Allergies Coded Allergies: bee venom protein (honey bee) (Verified Allergy, Unknown, 02/22/19) EDDIE ALANIS DO Feb 25, 2019 16:46
== END 2019-02-25 12:30 | disposition home or self-care (01) | DRG 751 ==
LOC: M ED 13:30 → M ED INP 18:26 → M PSY 20:40
PROVIDERS: ADMIT Psychiatry & Neurology Psychiatry; ATTEND Psychiatry & Neurology Addiction Medicine
DX: F33.1 Major depressive disorder, recurrent, moderate (principal); F17.210 Nicotine dependence, cigarettes, uncomplicated; Z91.030 Bee allergy status; G43.909 Migraine, unspecified, not intractable, without status migrainosus; F81.9 Developmental disorder of scholastic skills, unspecified; F41.8 Other specified anxiety disorders; K21.9 Gastro-esophageal reflux disease without esophagitis; Z79.899 Other long term (current) drug therapy; Z91.14 Patient's other noncompliance with medication regimen

== ENCOUNTER → 2021-07-18 | Outpatient (REF) | payer OTHER ==
[~2021-07-18] MED LIST changes: +BUPR150T12 PO; -BUPR150T3 PO; +IBUP80TA PO; +NICOINH INH; +OMEP-173 PO; +OMEP1CAP73 PO; -OMEP20CA4 PO; -SERT-155; +SERT25TA21 PO; +SERT50TA29; -TRAZ-163; +TRAZ-189 PO; +TRAZ-257
== END ==
LOC: M LAB REF 16:13
PROVIDERS: ATTEND Nurse Practitioner Family
DX: R68.89 Other general symptoms and signs (principal)

== ENCOUNTER → 2021-07-23 | Outpatient (CLI) | payer OTHER | LOC: M RAD 14:48 | PROVIDERS: ATTEND Nurse Practitioner Family | DX: R91.8 Other nonspecific abnormal finding of lung field (principal); R06.00 Dyspnea, unspecified ==

== ENCOUNTER 2021-10-01 18:21 | Emergency (ER) | payer OTHER ==
[~2021-10-01] VITALS: Ht 152.4 cm; Wt 38.1 kg
[2021-10-01] MEDS ORDERED: MIRT1TAB (18:47)
[2021-10-01] MEDS ORDERED: SERT50TA29 (18:47)
[2021-10-01] MEDS ORDERED: methylPREDNISolone 125MG 2ML VIAL IV ONE (20:45)
[2021-10-01] MEDS ORDERED: ASPIRIN 81 MG CHEW TABLET PO ONE (20:45)
[2021-10-01 20:49] LABS: VENOUS BASE EXCESS -0.3 (-2.0-2.0); VENOUS HCO3 23.2 MEQ/L (23.0-27.0); VENOUS O2 SATURATION 92.1 % (60.0-80.0); VENOUS PARTIAL PRESSURE CO2 34.8 mmHg (38.0-50.0); VENOUS PARTIAL PRESSURE O2 53.2 mmHg (30.0-50.0); VENOUS PH 7.442 UNITS (7.330-7.430); VENOUS STANDARD HCO3 24.1 MEQ/L; VENOUS TOTAL CO2 24.3 MEQ/L (24.0-28.0)
[2021-10-01 20:54] LABS: BASO # 0.1 10^3/uL (0.0-0.2); BASO % 0.7 % (0.0-1.0); EOS # 0.1 10^3/uL (0.0-0.5); EOS % 0.7 % (0.0-3.0); HEMATOCRIT 43.7 % (36.0-47.0); HEMOGLOBIN 14.3 g/dl (12.0-15.5); LYMPH # 1.7 10^3/uL (1.5-5.0); LYMPH % 10.4 % (24.0-44.0); MEAN CORPUSCULAR HEMOGLOBIN 30.6 pg (27.0-33.0); MEAN CORPUSCULAR HGB CONC 32.7 g/dl (32.0-36.5); MEAN CORPUSCULAR VOLUME 93.4 fl (80.0-96.0); MONO % 6.1 % (2.0-8.0); NEUTROPHILS # 13.5 10^3/uL (1.5-8.5); NEUTROPHILS % 81.6 % (36.0-66.0); PLATELET COUNT, AUTOMATED 367 10^3/uL (150-450); RED BLOOD COUNT 4.68 10^6/uL (4.00-5.40); WHITE BLOOD COUNT 16.5 10^3/uL (4.0-10.0)
[2021-10-01] MEDS: IPRATROPIUM 0.5MG/ALBUTEROL 2.5MG INH SOL UD 3ML (DUONEB) NEB SCH ×3 (21:03→21:35)
[2021-10-01 21:23] LABS: CK-MB VALUE MASS < 1.0 NG/ML (<3.6); CPK CREATINE PHOSPHOKINASE 56 U/L (26-192); MB/CK RELATIVE INDEX 1.79 (< OR =4)
[2021-10-01 21:27] LABS: ALBUMIN 3.3 GM/DL (3.2-5.2); ALT/SGPT 13 U/L (12-78); BILIRUBIN,DIRECT < 0.1 MG/DL (0.0-0.2); BILIRUBIN,TOTAL 0.3 MG/DL (0.2-1.0); BLOOD UREA NITROGEN 12 MG/DL (7-18); CALCIUM LEVEL 9.8 MG/DL (8.5-10.1); CARBON DIOXIDE LEVEL 26 MEQ/L (21-32); CHLORIDE LEVEL 102 MEQ/L (98-107); GLOMERULAR FILTRATION RATE > 60.0 (>51); GLUCOSE, FASTING 98 MG/DL (70-100); NT-PRO BNP 86 PG/ML (<125); POTASSIUM SERUM 4.5 MEQ/L (3.5-5.1); SODIUM LEVEL 137 MEQ/L (136-145); TOTAL PROTEIN 7.4 GM/DL (6.4-8.2)
[2021-10-01] MEDS ORDERED: ISOVUE-370 76% 100ML VIAL As Ordered ONE (22:12)
[2021-10-01 22:39] LABS: CK-MB VALUE MASS 1.2 NG/ML (<3.6); CPK CREATINE PHOSPHOKINASE 45 U/L (26-192); MB/CK RELATIVE INDEX 2.67 (< OR =4)
[2021-10-02] MEDS ORDERED: PRED20TA PO ×2 (00:08→00:31)
[2021-10-02] MEDS ORDERED: CEFD300C41 PO ×2 (00:08→00:31)
[2021-10-02 00:31] VITALS: BP 131/61
[2021-10-02] MEDS ORDERED: CEFDINIR 300 MG CAP (OMNICEF) PO ONE (01:00)
== END 2021-10-02 00:33 | disposition home or self-care (01) ==
LOC: M ED 18:21
DX: J18.9 Pneumonia, unspecified organism (principal); R91.1 Solitary pulmonary nodule; J44.9 Chronic obstructive pulmonary disease, unspecified; Z91.030 Bee allergy status; Z79.899 Other long term (current) drug therapy; F17.210 Nicotine dependence, cigarettes, uncomplicated
CPT/HCPCS: 36415; 71045; 71275; 80048; 80076; 82550; 82553; 82803; 83605; 83880; 85025; 87040; 87486; 87581; 87633; 87798; 93005; 93041; 94640; 99285; J2930; Q9967

== ENCOUNTER 2021-10-12 17:59 | Inpatient (IN) | payer OTHER ==
[~2021-10-12] VITALS: Ht 152.4 cm; Wt 37.6 kg
[~2021-10-12 17:59] MED LIST changes: +CEFD300C41 PO; +MIRT1TAB PO; +PRED20TA PO; +SERT50TA29 PO
[2021-10-12] MEDS: COMBIVENT RESPIMAT 100-20MCG INHALER 4GM INH SCH ×3 (18:22→18:55)
[2021-10-12 18:27] LABS: BASO # 0.1 10^3/uL (0.0-0.2); BASO % 0.7 % (0.0-1.0); EOS % 0.3 % (0.0-3.0); HEMATOCRIT 46.5 % (36.0-47.0); HEMOGLOBIN 14.7 g/dl (12.0-15.5); LYMPH % 7.2 % (24.0-44.0); MEAN CORPUSCULAR HEMOGLOBIN 30.6 pg (27.0-33.0); MEAN CORPUSCULAR HGB CONC 31.6 g/dl (32.0-36.5); MEAN CORPUSCULAR VOLUME 96.9 fl (80.0-96.0); MONO # 0.9 10^3/uL (0.0-0.8); MONO % 6.5 % (2.0-8.0); NEUTROPHILS # 12.2 10^3/uL (1.5-8.5); NEUTROPHILS % 84.6 % (36.0-66.0); PLATELET COUNT, AUTOMATED 329 10^3/uL (150-450); WHITE BLOOD COUNT 14.5 10^3/uL (4.0-10.0)
[2021-10-12 19:00] LABS: ALBUMIN 3.9 GM/DL (3.2-5.2); ALT/SGPT 22 U/L (12-78); BILIRUBIN,DIRECT 0.2 MG/DL (0.0-0.2); BILIRUBIN,TOTAL 0.2 MG/DL (0.2-1.0); BLOOD UREA NITROGEN 15 MG/DL (7-18); CALCIUM LEVEL 9.6 MG/DL (8.5-10.1); CARBON DIOXIDE LEVEL 29 MEQ/L (21-32); CHLORIDE LEVEL 109 MEQ/L (98-107); CREATININE FOR GFR 0.68 MG/DL (0.55-1.30); GLOMERULAR FILTRATION RATE > 60.0 (>51); GLUCOSE, FASTING 143 MG/DL (70-100); POTASSIUM SERUM 4.2 MEQ/L (3.5-5.1); SODIUM LEVEL 142 MEQ/L (136-145); TOTAL PROTEIN 7.9 GM/DL (6.4-8.2)
[2021-10-12] MEDS ORDERED: IPRATROPIUM 0.5MG/ALBUTEROL 2.5MG INH SOL UD 3ML (DUONEB) NEB ONE ×2 (19:45)
[2021-10-12] MEDS ORDERED: CEFD300CAP PO (22:44)
[2021-10-12] MEDS ORDERED: HOME MED LIST COMPLETE! XX SCH (22:45)
[2021-10-12] MEDS ORDERED: LEVALBUTEROL 1.25 MG/0.5 ML CONCENTRATE NEB NEB PRN (23:00)
[2021-10-12] MEDS ORDERED: AZITHROMYCIN 250MG TABLET PO ONE (23:15)
[2021-10-12] MEDS ORDERED: NS 500 ML IV ONE (23:20)
[2021-10-13 00:07] LABS: FREE T4 1.11 NG/DL (0.76-1.46); THYROID STIMULATING HORMONE 0.493 uIU/ML (0.358-3.740)
[2021-10-13] MEDS: HEPARIN SOD (PORCINE) 5000UNITS/ML 1ML VIAL/SYRINGE SC SCH ×3 (00:08→19:30)
[2021-10-13] MEDS: SERTRALINE HCL 50 MG TAB PO SCH ×2 (00:08→20:20)
[2021-10-13] MEDS: NS 1,000 ML IV SCH ×2 (00:09→05:20)
[2021-10-13] MEDS: methylPREDNISolone 40MG 1ML VIAL IV SCH ×2 (00:09→09:21)
[2021-10-13] MEDS: MIRTAZAPINE 7.5MG PER 1/2 TABLET PO SCH ×2 (02:31→20:20)
[2021-10-13 05:52] LABS: ABG BASE EXCESS 0.8 (-2.0-2.0); ABG HCO3 27.5 MEQ/L (22.0-26.0); ABG O2 SATURATION 97.9 % (95.0-99.0); ABG PARTIAL PRESSURE CO2 52.3 mmHg (35.0-45.0); ABG PARTIAL PRESSURE O2 103.1 mmHg (75.0-100.0); ABG STANDARD HCO3 25.2 MEQ/L (22.0-26.0); ABG TOTAL CO2 29.1 MEQ/L (22.0-29.0); ABG pH (ARTERIAL) 7.338 UNITS (7.350-7.450)
[2021-10-13] MEDS: TIOTROPIUM INHALER/CAPSULE (SPIRIVA) INH SCH (08:00)
[2021-10-13] MEDS: IPRATROPIUM 0.02% SOLN 0.5MG 2.5ML NEB NEB SCH ×4 (08:52→19:10)
[2021-10-13] MEDS: NICOTINE 14 MG/24 HR TRANSDERMAL TD SCH (09:00)
[2021-10-13 09:06] LABS: BLOOD UREA NITROGEN 16 MG/DL (7-18); CALCIUM LEVEL 8.8 MG/DL (8.5-10.1); CARBON DIOXIDE LEVEL 26 MEQ/L (21-32); CHLORIDE LEVEL 112 MEQ/L (98-107); CREATININE FOR GFR 0.42 MG/DL (0.55-1.30); GLOMERULAR FILTRATION RATE > 60.0 (>51); GLUCOSE, FASTING 157 MG/DL (70-100); POTASSIUM SERUM 4.6 MEQ/L (3.5-5.1); SODIUM LEVEL 141 MEQ/L (136-145)
[2021-10-13] MEDS: AZITHROMYCIN 250MG TABLET PO SCH (09:21)
[2021-10-13 15:40] VITALS: BP 117/68
[2021-10-13] MEDS: methylPREDNISolone 125MG 2ML VIAL IV SCH ×2 (18:19→23:54)
[2021-10-13] MEDS: SYMBICORT 80/4.5MCG INHALER 6GM INH SCH (19:09)
[2021-10-13 20:00] VITALS: BP_SYST 115; BP_SYST 120; BP_DIAS 59; BP_DIAS 65
[2021-10-14] VITALS: BP 117/68
[2021-10-14 04:00] VITALS: BP 104/55
[2021-10-14] MEDS: TIOTROPIUM INHALER/CAPSULE (SPIRIVA) INH SCH (07:59)
[2021-10-14] MEDS: SYMBICORT 80/4.5MCG INHALER 6GM INH SCH (07:59)
[2021-10-14] MEDS: IPRATROPIUM 0.02% SOLN 0.5MG 2.5ML NEB NEB SCH ×2 (08:00→11:22)
[2021-10-14] MEDS: HEPARIN SOD (PORCINE) 5000UNITS/ML 1ML VIAL/SYRINGE SC SCH (09:00)
[2021-10-14 09:15] VITALS: BP 123/75
[2021-10-14] MEDS ORDERED: AZIT-12 PO (09:45)
[2021-10-14] MEDS ORDERED: TIOT18INH INH (09:45)
[2021-10-14] MEDS ORDERED: PRED10TA2 PO (09:45)
[2021-10-14] MEDS ORDERED: SYMB80INH INH (09:45)
[2021-10-14] MEDS: AZITHROMYCIN 250MG TABLET PO SCH (09:57)
[2021-10-14] MEDS: methylPREDNISolone 125MG 2ML VIAL IV SCH (09:58)
[2021-10-14] MEDS: NICOTINE 14 MG/24 HR TRANSDERMAL TD SCH (09:58)
[2021-10-14] MEDS ORDERED: PROAAER10 INH (11:36)
[2021-10-14 11:54] LABS: HEMATOCRIT 40.9 % (36.0-47.0); HEMOGLOBIN 13.3 g/dl (12.0-15.5); MEAN CORPUSCULAR HEMOGLOBIN 30.6 pg (27.0-33.0); MEAN CORPUSCULAR HGB CONC 32.5 g/dl (32.0-36.5); MEAN CORPUSCULAR VOLUME 94.2 fl (80.0-96.0); PLATELET COUNT, AUTOMATED 315 10^3/uL (150-450); RED BLOOD COUNT 4.34 10^6/uL (4.00-5.40); WHITE BLOOD COUNT 15.4 10^3/uL (4.0-10.0)
[2021-10-14 12:00] VITALS: BP 126/71
[2021-10-14 12:25] LABS: ATYPICAL LYMPH 8 % (0-5); LYMPHOCYTES 6 % (16-44); MONOCYTES 5 % (0-5); NEUTROPHILS 75 % (28-66); PLATELET ESTIMATE NORMAL (NORMAL)
[2021-10-14 12:26] LABS: ALT/SGPT 18 U/L (12-78); BLOOD UREA NITROGEN 22 MG/DL (7-18); CALCIUM LEVEL 9.8 MG/DL (8.5-10.1); CARBON DIOXIDE LEVEL 32 MEQ/L (21-32); CHLORIDE LEVEL 103 MEQ/L (98-107); CREATININE FOR GFR 0.44 MG/DL (0.55-1.30); GLOMERULAR FILTRATION RATE > 60.0 (>51); GLUCOSE, FASTING 140 MG/DL (70-100); POTASSIUM SERUM 4.2 MEQ/L (3.5-5.1); SODIUM LEVEL 138 MEQ/L (136-145)
[2021-10-14 12:27] LABS: ALBUMIN 3.2 GM/DL (3.2-5.2); BILIRUBIN,TOTAL 0.2 MG/DL (0.2-1.0); MAGNESIUM LEVEL 2.3 MG/DL (1.8-2.4); TOTAL PROTEIN 6.5 GM/DL (6.4-8.2)
[2021-10-14] MEDS ORDERED: BUDE180INH INH (13:10)
[2021-10-14] MEDS ORDERED: IPRAINH INH (13:11)
[2021-10-14] MEDS ORDERED: ACETAMINOPHEN 500 MG TAB PO PRN (13:50)
[2021-10-14] MEDS ORDERED: traMADol 50 MG TAB PO ONE (13:50)
== END 2021-10-14 15:17 | disposition home health service (06) | DRG 140 ==
LOC: M ED 17:59 → EDBD 17:59 → M ED INP 22:58 → ENRESERV 10-13 14:23 → M PCU 10-13 15:28
PROVIDERS: ADMIT Internal Medicine; ATTEND Internal Medicine
PROC: B246ZZZ Ultrasonography of Right and Left Heart (ICD-10-PCS; principal; 2021-10-12)
DX: J44.1 Chronic obstructive pulmonary disease with (acute) exacerbation (principal); E43 Unspecified severe protein-calorie malnutrition; J96.11 Chronic respiratory failure with hypoxia; J96.12 Chronic respiratory failure with hypercapnia; R64 Cachexia; E87.2 Acidosis; R00.0 Tachycardia, unspecified; R91.1 Solitary pulmonary nodule; F32.A Depression, unspecified; Z20.822 Contact with and (suspected) exposure to COVID-19; Z79.899 Other long term (current) drug therapy; Z91.030 Bee allergy status; F17.210 Nicotine dependence, cigarettes, uncomplicated; Z90.79 Acquired absence of other genital organ(s); K21.9 Gastro-esophageal reflux disease without esophagitis

== ENCOUNTER → 2021-11-05 | Outpatient (CLI) | payer OTHER ==
[~2021-11-05] MED LIST changes: +AZIT-12 PO; +BUDE180INH INH; +CEFD300CAP PO; +IPRAINH INH; +PRED10TA2 PO; +PROAAER10 INH; +SYMB80INH INH; +TIOT18INH INH
== END ==
LOC: M RAD 14:57
PROVIDERS: ATTEND Internal Medicine Pulmonary Disease
DX: J43.9 Emphysema, unspecified (principal); R91.8 Other nonspecific abnormal finding of lung field

== ENCOUNTER → 2021-11-05 | Outpatient (CLI) | payer OTHER | LOC: M RAD 15:04 | PROVIDERS: ATTEND Nurse Practitioner Family | DX: J44.9 Chronic obstructive pulmonary disease, unspecified (principal) ==

== ENCOUNTER 2022-05-06 18:39 | Emergency (ER) | payer OTHER ==
[~2022-05-06] VITALS: Ht 152.4 cm; Wt 41.0 kg
[~2022-05-06 18:39] MED LIST changes: -ARNU1INH3; -AZIT500T5 PO; -IBUP-1022; -OMEP-173; -STIO1AER
[2022-05-06] MEDS ORDERED: STIO1AER (18:50)
[2022-05-06] MEDS ORDERED: OMEP-173 (18:50)
[2022-05-06] MEDS ORDERED: ARNU1INH3 (18:50)
[2022-05-06] MEDS ORDERED: IBUP-1022 (18:51)
[2022-05-06] MEDS ORDERED: cefTRIAXone SOD 2 GM in D5W MINI-BAG PLUS 50 ML IV ONE (20:00)
[2022-05-06] MEDS ORDERED: methylPREDNISolone 125MG 2ML VIAL IV ONE (20:00)
[2022-05-06] MEDS ORDERED: ISOVUE-370 76% 100ML VIAL As Ordered ONE (20:21)
[2022-05-06 21:10] LABS: CPK CREATINE PHOSPHOKINASE 114 U/L (34-145); MB/CK RELATIVE INDEX 0.87 (< OR =4)
[2022-05-06 22:57] LABS: CK-MB VALUE MASS < 1.0 NG/ML (<3.6); CPK CREATINE PHOSPHOKINASE 132 U/L (34-145); MB/CK RELATIVE INDEX 0.75 (< OR =4)
[2022-05-06] MEDS ORDERED: PRED20TA PO (23:33)
[2022-05-06] MEDS ORDERED: CEFD300CAP PO (23:33)
[2022-05-06] MEDS ORDERED: AZIT500T5 PO (23:33)
[2022-05-06] MEDS ORDERED: AZITHROMYCIN 250MG TABLET PO ONE (23:50)
[2022-05-07 00:07] VITALS: BP 130/77
== END 2022-05-07 00:17 | disposition home or self-care (01) ==
LOC: M ED 18:39
DX: J18.9 Pneumonia, unspecified organism (principal); R91.8 Other nonspecific abnormal finding of lung field; F17.200 Nicotine dependence, unspecified, uncomplicated; Z79.899 Other long term (current) drug therapy; Z91.030 Bee allergy status
CPT/HCPCS: 71275; 80047; 82550; 82553; 87040; 87486; 87581; 87633; 87798; 93005; 96365; 96366; 96375; 99284; J0696; J2930

== ENCOUNTER → 2022-05-06 | Outpatient (CLI) | payer OTHER ==
[~2022-05-06] MED LIST changes: +ARNU1INH3; +AZIT500T5 PO; +IBUP-1022; +OMEP-173; +STIO1AER
[2022-05-06 12:12] LABS: BASO # 0.1 10^3/uL (0.0-0.2); BASO % 1.1 % (0.0-1.0); EOS # 0.4 10^3/uL (0.0-0.5); EOS % 3.3 % (0.0-3.0); HEMATOCRIT 41.8 % (36.0-47.0); HEMOGLOBIN 12.9 g/dl (12.0-15.5); LYMPH # 2.1 10^3/uL (1.5-5.0); MEAN CORPUSCULAR HEMOGLOBIN 28.7 pg (27.0-33.0); MEAN CORPUSCULAR HGB CONC 30.9 g/dl (32.0-36.5); MEAN CORPUSCULAR VOLUME 93.1 fl (80.0-96.0); MONO % 7.9 % (2.0-8.0); NEUTROPHILS # 8.8 10^3/uL (1.5-8.5); PLATELET COUNT, AUTOMATED 459 10^3/uL (150-450); RED BLOOD COUNT 4.49 10^6/uL (4.00-5.40); WHITE BLOOD COUNT 12.6 10^3/uL (4.0-10.0)
== END ==
LOC: M RAD 10:09
PROVIDERS: ATTEND Nurse Practitioner Family
DX: R91.8 Other nonspecific abnormal finding of lung field (principal); R05.9 Cough, unspecified

== ENCOUNTER → 2022-06-27 | Outpatient (CLI) | payer OTHER ==
[~2022-06-27] MED LIST changes: +ARNU1INH3; +AZIT500T5 PO; +IBUP-1022; +OMEP-173; +STIO1AER
== END ==
LOC: M PLAIMG 14:22
PROVIDERS: ATTEND Nurse Practitioner Family
DX: J43.9 Emphysema, unspecified (principal); J18.9 Pneumonia, unspecified organism

== ENCOUNTER → 2022-08-21 | Outpatient (CLI) | payer OTHER | LOC: M RAD 13:12 | PROVIDERS: ATTEND Nurse Practitioner Family | DX: M54.50 Low back pain, unspecified (principal) ==

== ENCOUNTER 2023-02-10 11:14 | Day surgery (SDC) | payer OTHER ==
[~2023-02-10] VITALS: Ht 152.4 cm; Wt 47.2 kg
[~2023-02-10 11:14] MED LIST changes: +ALBU8.5H PO; -IBUP-1022; +NS 1,000 ML IV ONE; -OMEP-173
[2023-02-10] MEDS ORDERED: LIDOCAINE 2% 100MG/5ML SDV (FOR ANES.) As Ordered ONE (12:11)
[2023-02-10] MEDS ORDERED: propofoL 200 MG/20 ML VIAL As Ordered ONE ×2 (12:11→12:32)
[2023-02-10 12:54] VITALS: TEMP 97.9
[2023-02-10 13:11] VITALS: BP 114/53; O2SAT 98
== END 2023-02-10 13:19 | disposition home or self-care (01) ==
LOC: M OPP 11:14
PROVIDERS: ATTEND Internal Medicine Gastroenterology
DX: D12.3 Benign neoplasm of transverse colon (principal); K57.30 Diverticulosis of large intestine without perforation or abscess without bleeding; K64.8 Other hemorrhoids; K31.89 Other diseases of stomach and duodenum; K21.9 Gastro-esophageal reflux disease without esophagitis; K58.9 Irritable bowel syndrome, unspecified; M19.90 Unspecified osteoarthritis, unspecified site; M41.9 Scoliosis, unspecified; F41.9 Anxiety disorder, unspecified; F32.A Depression, unspecified; J44.9 Chronic obstructive pulmonary disease, unspecified; F17.290 Nicotine dependence, other tobacco product, uncomplicated; Z91.030 Bee allergy status; Z79.899 Other long term (current) drug therapy; Z80.1 Family history of malignant neoplasm of trachea, bronchus and lung

== ENCOUNTER 2023-05-04 14:16 | Emergency (ER) | payer OTHER ==
[~2023-05-04] VITALS: Ht 152.4 cm; Wt 52.3 kg
[~2023-05-04 14:16] MED LIST changes: +CEFD1CAP9 PO; -CEFD300C41 PO; -NS 1,000 ML IV ONE
[2023-05-04] MEDS ORDERED: PRED20TA PO (18:23)
[2023-05-04] MEDS ORDERED: AMOX875T2 PO (18:23)
[2023-05-04] MEDS ORDERED: ZITHTAB PO (18:23)
[2023-05-04] MEDS ORDERED: predniSONE 20 MG TAB PO ONE (18:30)
[2023-05-04] MEDS ORDERED: AUGMENTIN 875 MG TAB PO ONE (18:30)
[2023-05-04 18:35] VITALS: BP 123/58; TEMP 97.5; O2SAT 94
== END 2023-05-04 18:48 | disposition home or self-care (01) ==
LOC: M ED 14:16
DX: J44.1 Chronic obstructive pulmonary disease with (acute) exacerbation (principal); Z11.52 Encounter for screening for COVID-19; F17.290 Nicotine dependence, other tobacco product, uncomplicated
CPT/HCPCS: 71046; 87486; 87581; 87633; 87798; 99283; J7512

== ENCOUNTER → 2023-05-21 | Outpatient (CLI) | payer OTHER ==
[~2023-05-21] MED LIST changes: +AMOX875T2 PO; +ZITHTAB PO
== END ==
LOC: M RAD 14:34
PROVIDERS: ATTEND Nurse Practitioner Family
DX: J98.4 Other disorders of lung (principal)

== ENCOUNTER → 2023-06-29 | Outpatient (REF) | payer OTHER ==
[2023-06-29 18:30] LABS: BASO # 0.1 10^3/uL (0.0-0.2); BASO % 1.7 % (0.0-1.0); EOS # 0.4 10^3/uL (0.0-0.5); EOS % 5.6 % (0.0-3.0); HEMATOCRIT 44.3 % (36.0-47.0); HEMOGLOBIN 14.2 g/dl (12.0-15.5); LYMPH % 26.4 % (24.0-44.0); MEAN CORPUSCULAR HEMOGLOBIN 30.1 pg (27.0-33.0); MEAN CORPUSCULAR HGB CONC 32.1 g/dl (32.0-36.5); MEAN CORPUSCULAR VOLUME 94.1 fl (80.0-96.0); MONO # 0.6 10^3/uL (0.0-0.8); MONO % 7.7 % (2.0-8.0); NEUTROPHILS # 4.4 10^3/uL (1.5-8.5); NEUTROPHILS % 58.3 % (36.0-66.0); PLATELET COUNT, AUTOMATED 288 10^3/uL (150-450); RED BLOOD COUNT 4.71 10^6/uL (4.00-5.40); WHITE BLOOD COUNT 7.5 10^3/uL (4.0-10.0)
[2023-06-29 18:56] LABS: ALBUMIN 4.1 G/DL (3.2-5.2); ALKALINE PHOSPHATASE 63 U/L (46-116); ALT/SGPT 14 U/L (7.0-40); AST/SGOT 17 U/L (<34); BILIRUBIN,TOTAL 0.3 MG/DL (0.3-1.2); BLOOD UREA NITROGEN 15 MG/DL (9-23); CALCIUM LEVEL 9.4 MG/DL (8.5-10.1); CARBON DIOXIDE LEVEL 28 MMOL/L (20-31); CHLORIDE LEVEL 107 MMOL/L (98-107); CHOLESTEROL LEVEL 256 MG/DL (<200); CHOLESTEROL RISK RATIO 3.02 (<5); GLOMERULAR FILTRATION RATE > 60.0 (>51); GLUCOSE, FASTING 73 MG/DL (60-100); HDL CHOLESTEROL 84.5 MG/DL (>40); LDL CHOLESTEROL 141.9 MG/DL (<100); NON-HDL-C 171.5 MG/DL; POTASSIUM SERUM 4.7 MMOL/L (3.5-5.1); SODIUM LEVEL 139 MMOL/L (136-145); TRIGLYCERIDES LEVEL 148 MG/DL (<150)
[2023-06-29 18:57] LABS: FREE T4 0.97 NG/DL (0.89-1.76); THYROID STIMULATING HORMONE 0.969 uIU/ML (0.55-4.78)
[2023-06-29 19:04] LABS: HEMOGLOBIN A1c 5.7 % (4.0-6.0)
== END ==
LOC: M LAB REF 17:45
PROVIDERS: ATTEND Nurse Practitioner Family
DX: Z68.22 Body mass index [BMI] 22.0-22.9, adult (principal)

== ENCOUNTER → 2023-11-06 | Outpatient (REF) | payer OTHER | LOC: M LAB REF 16:19 | PROVIDERS: ATTEND Nurse Practitioner Family | DX: R30.0 Dysuria (principal) ==

== ENCOUNTER → 2024-01-25 | Outpatient (CLI) | payer OTHER | LOC: M PLAIMG 11:39 | PROVIDERS: ATTEND Nurse Practitioner Family | DX: Z87.09 Personal history of other diseases of the respiratory system (principal); J43.9 Emphysema, unspecified ==

== ENCOUNTER → 2024-06-14 | Outpatient (CLI) | payer OTHER ==
[~2024-06-14] MED LIST changes: +BUDE180A2 INH; -BUDE180INH INH
[2024-06-14 10:59] LABS: BASO # 0.1 10^3/uL (0.0-0.2); BASO % 1.3 % (0.0-1.0); EOS # 0.3 10^3/uL (0.0-0.5); EOS % 4.9 % (0.0-3.0); HEMATOCRIT 40.7 % (36.0-47.0); HEMOGLOBIN 12.7 g/dl (12.0-15.5); LYMPH # 2.1 10^3/uL (1.5-5.0); LYMPH % 35.2 % (24.0-44.0); MEAN CORPUSCULAR HEMOGLOBIN 28.8 pg (27.0-33.0); MEAN CORPUSCULAR HGB CONC 31.2 g/dl (32.0-36.5); MEAN CORPUSCULAR VOLUME 92.3 fl (80.0-96.0); MONO # 0.5 10^3/uL (0.0-0.8); MONO % 9.1 % (2.0-8.0); NEUTROPHILS # 2.9 10^3/uL (1.5-8.5); NEUTROPHILS % 49.2 % (36.0-66.0); PLATELET COUNT, AUTOMATED 259 10^3/uL (150-450); RED BLOOD COUNT 4.41 10^6/uL (4.00-5.40); WHITE BLOOD COUNT 5.9 10^3/uL (4.0-10.0)
[2024-06-14 11:20] LABS: HEMOGLOBIN A1c 5.6 % (4.0-6.0)
[2024-06-14 11:23] LABS: ALKALINE PHOSPHATASE 59 U/L (35-104); ALT/SGPT 17 U/L (7.0-40); AST/SGOT 17 U/L (<34); BILIRUBIN,TOTAL 0.3 MG/DL (0.3-1.2); BLOOD UREA NITROGEN 20 MG/DL (9-23); CALCIUM LEVEL 9.7 MG/DL (8.5-10.1); CARBON DIOXIDE LEVEL 30 MMOL/L (20-31); CHLORIDE LEVEL 104 MMOL/L (98-107); CHOLESTEROL LEVEL 191 MG/DL (<200); CHOLESTEROL RISK RATIO 2.65 (<5); GLOMERULAR FILTRATION RATE > 60.0 (>51); GLUCOSE, FASTING 87 MG/DL (60-100); LDL CHOLESTEROL 100.6 MG/DL (<100); MAGNESIUM LEVEL 1.8 MG/DL (1.8-2.4); POTASSIUM SERUM 4.4 MMOL/L (3.5-5.1); SODIUM LEVEL 138 MMOL/L (136-145); TOTAL PROTEIN 6.8 G/DL (5.7-8.2); TRIGLYCERIDES LEVEL 92 MG/DL (<150)
[2024-06-14 11:25] LABS: TOTAL 25(OH) VITAMIN D 7.6 NG/ML (20.0-100.0)
== END ==
LOC: M LAB 10:14
PROVIDERS: ATTEND Nurse Practitioner Family
DX: E55.9 Vitamin D deficiency, unspecified (principal); K21.9 Gastro-esophageal reflux disease without esophagitis; Z13.1 Encounter for screening for diabetes mellitus; Z13.220 Encounter for screening for lipoid disorders; Z13.29 Encounter for screening for other suspected endocrine disorder

== ENCOUNTER → 2024-06-28 | Outpatient (CLI) | payer OTHER | LOC: M RAD 11:35 | PROVIDERS: ATTEND Nurse Practitioner Family | DX: M25.512 Pain in left shoulder (principal); M77.8 Other enthesopathies, not elsewhere classified ==

== ENCOUNTER → 2024-06-28 | Outpatient (CLI) | payer OTHER | LOC: M SLEEP HO 10:46 | PROVIDERS: ATTEND Internal Medicine Pulmonary Disease | DX: R06.83 Snoring (principal) ==

== ENCOUNTER 2024-08-31 12:38 | Outpatient (RCR) | payer OTHER | END 2024-09-28 | LOC: M PT 12:38 | PROVIDERS: ATTEND Physician Assistant | DX: M25.512 Pain in left shoulder (principal) ==

== ENCOUNTER → 2025-02-02 | Outpatient (REF) | payer OTHER ==
[~2025-02-02] MED LIST changes: -IBUP-1022 PO; +IBUP600T42 PO
[2025-02-02 15:11] LABS: BASO # 0.1 10^3/uL (0.0-0.2); BASO % 1.0 % (0.0-1.0); EOS # 0.2 10^3/uL (0.0-0.5); EOS % 2.2 % (0.0-3.0); LYMPH # 2.2 10^3/uL (1.5-5.0); LYMPH % 26.9 % (24.0-44.0); MONO # 0.7 10^3/uL (0.0-0.8); MONO % 9.2 % (2.0-8.0); NEUTROPHILS # 4.9 10^3/uL (1.5-8.5); NEUTROPHILS % 60.5 % (36.0-66.0); PLATELET COUNT, AUTOMATED 257 10^3/uL (150-450)
[2025-02-02 15:17] LABS: ALT/SGPT 18 U/L (7.0-40); AST/SGOT 20 U/L (<34); CALCIUM LEVEL 9.4 MG/DL (8.5-10.1); CARBON DIOXIDE LEVEL 30 MMOL/L (20-31); CHLORIDE LEVEL 106 MMOL/L (98-107); CREATININE FOR GFR 0.57 MG/DL (0.55-1.30); GLOMERULAR FILTRATION RATE > 90.0 (>51); POTASSIUM SERUM 3.9 MMOL/L (3.5-5.1); SODIUM LEVEL 146 MMOL/L (136-145)
[2025-02-02 15:48] LABS: ESTIMATED AVERAGE GLUCOSE 120.0 MG/DL (60-110)
== END ==
LOC: M LAB REF 14:22
PROVIDERS: ATTEND Nurse Practitioner Family
DX: R63.4 Abnormal weight loss (principal)